=== PATIENT | female | born 1950 | race Caucasian/White ===

== ENCOUNTER → 2020-08-09 | Outpatient (CLI) | payer MEDICARE ==
[2020-08-09 14:27] LABS: CREATININE FOR GFR 1.21 MG/DL (0.55-1.30); GLOMERULAR FILTRATION RATE 46.7 (>39)
== END ==
LOC: M LAB 13:04
PROVIDERS: ATTEND Surgery
DX: R10.31 Right lower quadrant pain (principal); R10.32 Left lower quadrant pain

== ENCOUNTER → 2020-08-10 | Outpatient (CLI) | payer MEDICARE ==
[~2020-08-10] MED LIST: GASTROGRAFIN SOLUTION 30ML (Q9963) As Ordered ONE; ISOVUE-370 76% 100ML VIAL As Ordered ONE
--- NOTE | 2020-08-16 14:16 | REP ---
CT ABDOMEN AND PELVIS WITH IV AND ORAL CONTRAST: Dual phase post-contrast imaging. HISTORY: Right lower quadrant abdomen pain. COMPARISON: 01/15/19. CT CONTRAST DOSE: 100ml of intravenous Isovue 370. CT FINDINGS: Preliminary digital vocational psychologist radiograph is unremarkable. The lung bases are clear on axial CT images. There is good opacification of the arterial and cardiac blood pool and there is no filling defect seen in any of the cardiac chambers. Normal caliber aorta is seen with some vascular calcification. No focal hepatic mass lesion is observed. Liver is normal in size and homogeneous in texture. The spleen is normal in size and homogenous in texture as well. Normal adrenal glands are seen bilaterally. There is mild gallbladder wall thickening and enhancement. There is some higher attenuation material layering in the dependent portion suggestive of gallstones. This is unchanged. No abnormality is noted in the pancreas. There is a small descending duodenal diverticulum. No periaortic mass or adenopathy is seen. The kidneys enhance symmetrically and are morphologically intact. No filling defect is seen in the urinary tract collecting system on delayed post-contrast images. The ureters describe a normal course to the bladder. No enhancing bladder mass lesion is visible. The uterus shows fibroid change with calcifications in the right uterine fundal region. No ovarian mass is seen. Small bilateral ovarian cystic areas are noted, 1.5cm on the right and 1.6cm on the left. No definite abdominal wall defect is seen. No bony destructive lesion. There is degenerative spondylosis change in the lumbosacral spine. A normal appendix is visible in the right lower quadrant. No inflammatory change is seen. Small and large intestinal bowel loops are normal in the abdomen and pelvis IMPRESSION: No acute abdominal or pelvic abnormality. Small bilateral ovarian cysts. Gallbladder wall thickening and probable small gallstones. Uterine fibroid change. [facility]
== END ==
LOC: M RAD 12:50
PROVIDERS: ATTEND Surgery
DX: N83.201 Unspecified ovarian cyst, right side (principal); N83.202 Unspecified ovarian cyst, left side; D25.9 Leiomyoma of uterus, unspecified
CPT/HCPCS: 74177; Q9963; Q9967